=== PATIENT | male | born 1990 | race Caucasian/White ===

== ENCOUNTER → 2020-10-16 12:30 | Outpatient (BNVA) | payer OTHER, SELFPAY | PROVIDERS: Visit Provider Nurse Practitioner Family | DX: Z20.822 Contact with and (suspected) exposure to COVID-19 (principal) | CPT/HCPCS: 87635 ==

== ENCOUNTER 2021-06-16 03:28 | Emergency (ER) | payer SELFPAY ==
[2021-06-16 03:34] VITALS: BP 156/104; PULSE 75; RESP 18; TEMP 36.4; O2SAT 100; BMI 31.1
--- NOTE | 2021-06-16 04:47 | CTR_ITS ---
PROCEDURE INFORMATION: Exam: CT Head Without Contrast Exam date and time: 06/16/2021 4:47 AM Age: 31 years old Clinical indication: Pain; Headache TECHNIQUE: Imaging protocol: Computed tomography of the head without contrast. Radiation optimization: All CT scans at this facility use at least one of these dose optimization techniques: automated exposure control; mA and/or kV adjustment per patient size (includes targeted exams where dose is matched to clinical indication); or iterative reconstruction. COMPARISON: CT head wo con* [id number] 01/28/2015 7:08 AM RADIATION DOSE METRICS: Total DLP (mGy-cm): 889.07 FINDINGS: Brain: No acute intracranial hemorrhage or mass effect. No definite acute infarct by CT. Cerebral ventricles: Ventricle size is normal for age. Paranasal sinuses: Included paranasal sinuses are essentially clear. Mastoid air cells: No significant acute finding. Vasculature: As before, prominent draining vein in the right frontal region, presumably related to a venous angioma. No significant interval change in this appearance. Bones/joints: No definite acute skull fracture. CT/CT head wo con* [id number] IMPRESSION: 1. No acute intracranial hemorrhage or mass effect. 2. Other findings discussed above. Radiation Dose CTDIVOL = (mGy): DLP = 889.07 (mGy-cm)
[2021-06-16] MEDS: diphenhydrAMINE 50 mg/mL SDV 1mL 25 MG IVP (04:58)
[2021-06-16] MEDS: dexamethasone 4 mg/mL INJ 8 MG IVP (04:59)
[2021-06-16] MEDS: metoclopramide 5 mg/mL SDV 2 mL 10 MG IVP (04:59)
[2021-06-16] MEDS: ketorolac 30 mg/mL INJ 15 MG IVP (04:59)
--- NOTE | 2021-06-16 05:23 | ED_ITS ---
HPI - Headache General: Chief Complaint: Headache Stated Complaint: bad headache Time Seen by Provider: 06/16/21 03:53 History of Present Illness: HPI Narrative: 31-year-old male who states that he has had headaches essentially daily/nightly for the last 10 years. They are always on the right side of his head. He points to the temporoparietal region. He states that with his headaches, the right eye antonio, and gets puffy . He takes Excedrin Migraine, which helps sometimes, but not always. The headache was much worse tonight than usual, although maybe not the worst of his life. He denies any fever, vomiting, specific blurry vision, weakness, language problems or other symptoms. He states that he has never been checked out for these headaches MD elicited complaint: headache Onset (ago): hour(s) Onset description: gradually and while at rest Location: right, temporal and parietal Severity: moderate Quality & Timing: aching, throbbing and pressure Exacerbating factors: exertion and light Relieving factors: nothing Context: occurred at rest Associated symptoms: Reports nausea and photophobia; Deny chest pain, confusion, cough, diaphoresis, eye pain, eye redness, fever(s), neck stiffness, numbness, paresthesias, seizures, short of breath or vomiting Review of Systems Const: Denies: fever(s) or diaphoresis Card: Denies: chest pain GI: Reports: nausea; Denies: vomiting Neuro: Denies: confusion [facility] ED PFSH: Social History (Updated 10/16/20 @ 11:14 by Charly Smith LPN) Smoking and tobacco status: current every day smoker Alcohol intake: never Physical Exam Const: COMMON NORMALS: no acute distress, patient oriented x3 and alert GENERAL APPEARANCE: cooperative HENMT: COMMON NORMALS: normocephalic HEAD & SCALP: normocephalic Eye: COMMON NORMALS: Equal, round and reactive pupils present and EOMs intact bilaterally PUPIL: Yes Equal, round and reactive pupils present DIRECT OPHTHALMOSCOPY: Yes photophobia Chest: COMMONS NORMALS: normal inspection of the chest Resp: COMMON NORMALS: normal respiratory effort, No use of accessory muscles and clear to auscultation bilaterally AUSCULTATION: clear to auscultation bilaterally Cardio: COMMON NORMALS: regular rate and regular rhythm RATE: regular rate RHYTHM: regular rhythm GI: COMMON NORMALS: Normal to inspection, nondistended, normoactive bowel sounds present Neuro: COMMON NORMALS: patient oriented x3 SENSORIUM/ORIENTATION: Yes alert Course Vital Signs: Vital signs: Vital Signs Temperature 97.6 F 06/16/21 03:34 Pulse Rate 75 06/16/21 03:34 Respiratory Rate 18 06/16/21 03:34 Blood Pressure 156/104 06/16/21 03:34 Pulse Oximetry 100 06/16/21 03:34 MDM - Headache MDM Narrative: Medical decision making narrative: Migraine cocktail given. Awaiting CT result [[id number]] CT report reveals a large draining vein in the right frontal region, presumably of venous angioma. Usually these are incidental findings as radiology notes, but curious that his pain is always on the right. He will require further outpatient work-up for this. He has no PCP. Case management has been consulted to find the patient a PCP. He will likely need an MRV as an outpatient. Discharge Plan Discharge Patient Disposition: Home Clinical Impression: Headache Qualifiers: Headache type: unspecified Headache chronicity pattern: acute headache Intractability: not intractable Qualified Code(s): R51.9 - Headache, unspecified Condition: Stable Prescriptions: New Imitrex 100 mg tablet See Rx Instructions .ROUTE .COMPLEX Qty: 10 RF: 0 Discharge Orders: Discharge ED (Routine); Ordered 06/16/21 Ordered By: Lito Lou Discharge Diet: Advance as tolerated Discharge Activity: Increase activity as tolerated Patient Instructions: Migraine Headache (ED) Activity Restrictions/Additional Instructions: Return for worsening headache despite treatment, language problems, weakness, vision problems, other concerning symptoms. A case management referral has been placed for a primary care physician appointment for you. You should get a call from them this week to clarify an appointment time Coding Level of Care Code ED Electronics Technician Apprentice for [employer] Fwd Exam Detailed
--- NOTE | 2021-06-18 13:31 | DCPLANNER ---
outcomes manager had message to speak with patient about getting a primary care physician. outcomes manager called phone number [phone], hospice case manager unable to speak with patient at this time. outcomes manager did leave a voicemail for patient to return manager of case management phone call.
== END 2021-06-16 07:23 | disposition home or self-care (01) ==
PROVIDERS: Emergency Provider Emergency Medicine
DX: R51.9 Headache, unspecified (principal); F17.210 Nicotine dependence, cigarettes, uncomplicated
CPT/HCPCS: 70450; 96374; 96375; 99283; J1100; J1200; J1885; J2765

== ENCOUNTER 2021-07-29 21:46 | Emergency (ER) | payer SELFPAY ==
[2021-07-29 21:59] VITALS: BP 159/93; PULSE 87; RESP 18; TEMP 37.1; O2SAT 98; BMI 31.1
--- NOTE | 2021-07-29 22:09 | ED_ITS ---
HPI - Dental/Oral General: Chief complaint: Dental/Oral Stated complaint: Absessed Teeth Time Seen by Provider: 07/29/21 22:05 History of Present Illness: HPI Narrative: Patient is a 31-year-old male comes to the ED with dental pain. Symptoms started a couple days ago. His dental pain is located around tooth #30 and 29 and back right lower jaw. Denies any injury or trauma to cause dental pain. He has a dentist he is cold and has an appoint with them scheduled for 07 September, but might be able to get in earlier if there is any cancellations. Denies any fever, chills, trouble breathing or any tongue or lip swelling. Associated symptoms: Denies fever(s) or odynophagia Review of Systems Const: Denies: fever(s), chills or fatigue Eyes: Denies: change in vision or eye discomfort ENMT: Reports: dental pain; Denies: throat pain, odynophagia, nasal discharge or nasal congestion Card: Denies: chest pain, palpitations, edema, swelling of feet/ankles, dyspnea on exertion or orthopnea Resp: Denies: dyspnea, productive cough or non-productive cough GI: Denies: abdominal pain, nausea, vomiting, diarrhea, constipation or hematochezia : Denies: flank pain, difficulty urinating, dysuria or hematuria Musc: Denies: neck pain, back pain or extremity swelling Skin/Breast: Denies: rash or new lesions Neuro: Denies: headache(s), numbness in extremities or weakness in extremities PFSH ED PFSH: Social History Smoking and tobacco status: current every day smoker Alcohol intake: never Physical Exam Const: COMMON NORMALS: no acute distress, patient oriented x3, healthy appearing and alert GENERAL APPEARANCE: cooperative and comfortable HENMT: COMMON NORMALS: normocephalic HEAD & SCALP: normocephalic MOUTH: Normal oral and palatal mucosa present TEETH & GINGIVA: Yes abnormal tooth and associated gingiva lower right first molar tender, with associated gingival edema and other (Extensive dental decay) and Yes caries (Tooth #30 and 29) THROAT: posterior oropharynx normal and uvula midline Neck/C-Spine: COMMON NORMALS: supple GENERAL: Yes normal visual inspection Resp: COMMON NORMALS: normal respiratory effort, No retractions, No use of accessory muscles and clear to auscultation bilaterally AUSCULTATION: clear to auscultation bilaterally Cardio: COMMON NORMALS: regular rate, regular rhythm, S1 normal heart sound present, S2 normal heart sound present, No gallops present (Cardio), No clicks present (Cardio), No murmurs present (Cardio) and Peripheral pulses 2+ throughout RATE: regular rate RHYTHM: regular rhythm HEART SOUNDS: S1 normal heart sound present and S2 normal heart sound present PERIPHERAL PULSES: Peripheral pulses 2+ throughout GI: COMMON NORMALS: Normal to inspection, nondistended, normoactive bowel sounds present, Soft to palpation, non-tender and no masses PALPATION: Yes Soft to palpation : COMMON NORMALS: Yes no CVA tenderness BLADDER/KIDNEY EXAM: Yes no CVA tenderness Back/Pelvis: COMMON NORMALS: no CVA tenderness Extremity: COMMON NORMALS: normal to inspection Neuro: COMMON NORMALS: patient oriented x3 and moves all extremities SENSORIUM/ORIENTATION: Yes alert Skin: GENERAL SKIN EXAM: dry skin Course Vital Signs: Vital signs: Vital Signs Temperature 98.8 F 07/29/21 21:59 Pulse Rate 87 07/29/21 21:59 Respiratory Rate 18 07/29/21 21:59 Blood Pressure 159/93 07/29/21 21:59 Pulse Oximetry 98 07/29/21 21:59 MDM - Dental/Oral MDM Narrative: Medical decision making narrative: Patient is a 31-year-old male comes to the ED with dental pain. He has extensive dental caries on tooth #30 and 29 of right lower mandible. No trouble breathing, lip or tongue swelling noted. Vitals are stable. Patient has an appointment set up with the dentist in a couple weeks but is going to try to get in earlier if possible. He was given a dose of clindamycin and hydrocodone while here in the ED. He was discharged home with Celebrex and clindamycin prescriptions. Return ED precautions given. Patient understood agree with plan. Discharge Plan Discharge Patient Disposition: Home Clinical Impression: Dental infection Condition: Stable Prescriptions: New clindamycin HCl 150 mg capsule 300 mg PO QID 7 Days Qty: 56 RF: 0 Celebrex 100 mg capsule 100 mg PO BID PRN (Reason: pain) Qty: 20 RF: 0 No Action Imitrex 100 mg tablet See Rx Instructions .ROUTE .COMPLEX Qty: 10 RF: 0 Discharge Orders: Discharge ED (Routine); Ordered 07/29/21 Ordered By: Taiwo Colón Discharge Diet: Regular Discharge Activity: Resume usual activity Patient Instructions: Dental Caries (Cavities), Toothache (ED) Activity Restrictions/Additional Instructions: Follow-up with dentist at your next scheduled appointment for further evaluation and management of dental pain. Take medications as prescribed. Return to the ER or your medical provider if condition worsens. Please read and understand discharge instructions. Thank you for choosing [facility] for your healthcare needs today. Please realize this is an emergency room and that we are providing you with a medical screening exam and this may not be complete and all inclusive of all the testing and or work up that you may need to determine your ailment or severity of your illness. It is very important that you follow up as instructed or that you return to the Emergency Department should you have concerns or if your condition changes or worsens in any way. Coding Level of Care Code ED Stripper Printed Circuit Boards for Riaz Fwd Exam Comprehensive
[2021-07-29] MEDS: clindamycin 150 mg Capsule 300 MG PO (22:54)
[2021-07-29] MEDS: HYDROcodone-acetaminophen 5-325 mg Tablet 1 TAB PO (22:54)
[2021-07-29 22:56] VITALS: BP 157/104; PULSE 85; RESP 18; O2SAT 98
== END 2021-07-29 22:59 | disposition home or self-care (01) ==
PROVIDERS: Emergency Provider Physician Assistant
DX: K04.7 Periapical abscess without sinus (principal); F17.210 Nicotine dependence, cigarettes, uncomplicated
CPT/HCPCS: 99283

== ENCOUNTER 2021-10-19 14:26 | Emergency (ER) | payer SELFPAY ==
[2021-10-19 14:40] VITALS: BP 159/100; PULSE 81; RESP 16; TEMP 36.7; O2SAT 98
--- NOTE | 2021-10-19 15:15 | W.ED.HA ---
HPI - Headache General: Chief Complaint: Headache Stated Complaint: Migraine for several days and wont go away Time Seen by Provider: 10/19/21 14:49 Source: patient and family Mode of arrival: ambulatory Limitations: no limitations History of Present Illness: Patient is a 31-year-old male who presents to the ED today with a complaint of chronic headaches. Patient states he has experienced chronic headaches daily for years . He states headaches are usually manageable during the day but seem to worsen at night. He states headaches are always focused to his right temporal parietal region. He states sometimes he will get right periorbital swelling and occasionally right-sided epistaxis. Patient has been evaluated for the headaches previously and in ED setting but has never had any kind of outpatient/specialty evaluation. He states his CT scan on his last visit showed a venous angioma he was recommended to have further imaging as an outpatient. Patient does not have any insurance/is self-pay so has not followed up with this. Significant other states he has been eating extreme amounts of [id number] migraine medication and attempts to help alleviate his discomfort but none of it helps. He states he has been Imitrex without relief of symptoms as well. Headache does not seem to be affected by position or exertion. MD elicited complaint: headache Onset (ago): year(s) Location: right, temporal and parietal Severity: severe Quality & Timing: throbbing Exacerbating factors: other (seems to worsen at night) Relieving factors: nothing Associated symptoms: Deny chest pain, confusion, fever(s), malaise, nausea, rash or vomiting Treatments prior to arrival: acetaminophen, ibuprofen, prescription analgesic and migraine medication Review of Systems Const: Denies: fever(s), chills, body aches, fatigue or malaise Eyes: Reports: other (occassional R eye periorbital swelling); Denies: change in vision, blurry vision, blind spots, photophobia, eye discomfort, eye discharge, eye redness, floaters or seeing flashes ENMT: Reports: epistaxis (occasionally with headaches); Denies: throat pain, odynophagia, nasal discharge or nasal congestion Card: Denies: chest pain Resp: Denies: dyspnea GI: Denies: abdominal pain, nausea or vomiting Musc: Denies: neck pain, back pain, extremity pain or joint pain Skin/Breast: Denies: rash Neuro: Reports: headache(s); Denies: numbness in extremities, weakness in extremities, sensory changes, difficulty walking, frequent falls, dizziness, vertigo, confusion, behavioral changes, Slurred speech present, difficulty communicating thoughts or seizure-like activity PFSH ED PFSH: Social History Smoking and tobacco status: current every day smoker Alcohol intake: never Physical Exam Const: COMMON NORMALS: no acute distress, average body habitus, patient oriented x3, no limitations, healthy appearing, alert and well nourished GENERAL APPEARANCE: cooperative ORIENTATION/CONSCIOUSNESS: Yes awake, Yes oriented to person, Yes oriented to place and Yes oriented to time HENMT: COMMON NORMALS: normocephalic, atraumatic, hearing grossly normal bilaterally, external ears normal, EAC's normal, TM's normal bilaterally, Normal external nose present and oropharynx normal HEAD & SCALP: normal to inspection, normocephalic and atraumatic FACE & SINUS: normal facial exam NOSE: Normal external nose present EXTERNAL EAR: Yes external ears normal EXTERNAL AUDITORY CANAL: EAC's normal TYMPANIC MEMBRANE: TM's normal bilaterally MOUTH: Normal oral and palatal mucosa present, lip normal and tongue normal THROAT: posterior oropharynx normal, tonsils normal and uvula midline Eye: COMMON NORMALS: Equal, round and reactive pupils present and EOMs intact bilaterally GENERAL EYE: appearance normal, both eyes and all related structures PUPIL: Yes Equal, round and reactive pupils present Neck/C-Spine: COMMON NORMALS: full ROM, no lymphadenopathy and no meningeal signs Resp: COMMON NORMALS: normal respiratory effort Cardio: COMMON NORMALS: regular rate and regular rhythm RATE: regular rate RHYTHM: regular rhythm Extremity: COMMON NORMALS: normal to inspection Neuro: EVERT COMA SCALE: document GCS findings Evert coma scale eye opening: Spontaneous [place] coma scale verbal response: Orientated [place] coma scale motor response: Obey commands [place] coma scale total score: 15 COMMON NORMALS: patient oriented x3, CN's II-XII intact bilaterally, moves all extremities, no focal motor deficits, no sensory deficits noted and gait normal SENSORIUM/ORIENTATION: Yes alert, Yes oriented to person, Yes oriented to place and Yes oriented to time MENINGEAL SIGNS: Yes no meningeal signs Skin: COMMON NORMALS: no rashes or lesions noted GENERAL SKIN EXAM: no rashes or lesions noted Course Vital Signs: Vital signs: Vital Signs Temperature 98.1 F 10/19/21 14:40 Pulse Rate 68 10/19/21 16:14 Respiratory Rate 16 10/19/21 16:14 Blood Pressure 137/86 10/19/21 16:14 Pulse Oximetry 98 10/19/21 16:14 MDM - Headache Medical Decision Making Patient is a 31-year-old male here for complaints of chronic daily headaches for years . Looks like he had a CT scan back in 2014 which showed the venous angioma. His CT scan in June 2021 also saw this and the appearance had not changed much. These are usually incidental however when symptomatic developmental venous anomalies/DVAs can present with headaches. I spoke with ad radiologist who stated the best imaging to order for further evaluation would be a MRA. I explained to patient I would not be able to complete this from an ED standpoint today as his symptoms have been present for years and it is considered non-emergent at this time. I did place information with CM to get him set up with PCP so they can order and refer to neurology/neurosurgery if indicated. They also were given financial retirement plan specialist paperwork to help cover costs. Patient stated he has noticed his BP has been elevated and wonders if this could have anything to do with his headaches-certainly possible. I think it is reasonable to place patient on propranolol which will provide treatment for his headaches but also indicated for chronic migraine headaches. PCP can titrate this upward to desired effect. Return to ED precautions given. I did elect to do CBC/CMP given the history of him taking extreme amounts of [id number] medications for treatment of HAs. His LFTs/kidney functions are normal. Return to ED precautions verbally given to patient and significant other. Lab Data : 10/19/21 15:20 10/19/21 15:20 Laboratory Results WBC 7.9 10^3/uL (4.0-10.0) 10/19/21 15:20 RBC 5.39 10^6/uL (4.1-5.3) H 10/19/21 15:20 Hgb 15.6 g/dL (11.7-16.6) 10/19/21 15:20 Hct 46.2 % (42.0-52.0) 10/19/21 15:20 MCV 85.7 fl (80-94) 10/19/21 15:20 MCH 28.9 pg (28.0-34.0) 10/19/21 15:20 MCHC 33.8 g/dL (30.0-36.0) 10/19/21 15:20 RDW 12.7 % (12.1-15.1) 10/19/21 15:20 Plt Count 187 10^3/cmm (130-400) 10/19/21 15:20 MPV 11.1 fL (7.4-10.4) H 10/19/21 15:20 Neut % (Auto) 57.8 % 10/19/21 15:20 Lymph % (Auto) 32.6 % 10/19/21 15:20 Nance % (Auto) 6.7 % 10/19/21 15:20 Eos % (Auto) 1.9 % 10/19/21 15:20 Baso % (Auto) 0.6 % 10/19/21 15:20 Neut # (Auto) 4.59 10^3/uL (1.8-7.7) 10/19/21 15:20 Lymph # (Auto) 2.6 10^3/uL (0.8-4.8) 10/19/21 15:20 Nance # (Auto) 0.5 10^3/uL (0.2-0.9) 10/19/21 15:20 Eos # (Auto) 0.2 10^3/uL (0.0-0.8) 10/19/21 15:20 Baso # (Auto) 0.1 10^3/uL (0.0-0.1) 10/19/21 15:20 Nucleated RBC % (auto) 0 % 10/19/21 15:20 Nucleated RBCs # 0.0 /100WBC 10/19/21 15:20 Sodium 141 mmol/L (136-145) 10/19/21 15:20 Potassium 4.1 mmol/L (3.5-5.1) 10/19/21 15:20 Chloride 107 mmol/L (98-107) 10/19/21 15:20 Carbon Dioxide 23 mmol/L (22-29) 10/19/21 15:20 Anion Gap 15.1 (5-19) 10/19/21 15:20 BUN 9 mg/dL (6-20) 10/19/21 15:20 Creatinine 1.1 mg/dL (0.7-1.2) 10/19/21 15:20 GFR Calculation 77.6 mL/min (90-130) L 10/19/21 15:20 Glucose 86 mg/dL (65-115) 10/19/21 15:20 Calculated Osmolality 290 mOsm/kg (285-295) 10/19/21 15:20 Calcium 8.5 mg/dL (8.5-10.5) 10/19/21 15:20 Total Bilirubin 0.2 mg/dL (0.15-1.2) 10/19/21 15:20 AST 15 U/L (0-40) 10/19/21 15:20 ALT 21 U/L (0-41) 10/19/21 15:20 Alkaline Phosphatase 98 IU/L (40-130) 10/19/21 15:20 Total Protein 7.1 g/dL (6.6-8.7) 10/19/21 15:20 Albumin 4.6 g/dL (3.5-5.2) 10/19/21 15:20 Globulin 2.5 g/dL (1.3-4.6) 10/19/21 15:20 Discharge Plan Discharge Patient Disposition: Home Clinical Impression: Chronic headaches Qualifiers: Headache type: unspecified Intractability: intractable Qualified Code(s): R51.9 - Headache, unspecified Hypertension Qualifiers: Hypertension type: unspecified Qualified Code(s): I10 - Essential (primary) hypertension Condition: Stable Prescriptions: New propranolol 20 mg tablet 20 mg PO Q6H Qty: 30 0RF No Action Imitrex 100 mg tablet See Rx Instructions .ROUTE .COMPLEX Qty: 10 0RF Rx Instructions: take 1 tab at onset of headache; if no relief, may repeat 1 tab after at least 2 hrs; max = 2 tabs/24 hrs Celebrex 100 mg capsule 100 mg PO BID PRN (Reason: pain) Qty: 20 0RF Discharge Orders: Discharge ED (Routine); Ordered 10/19/21 Ordered By: Jenise Cabrera Activity Restrictions/Additional Instructions: As we discussed case management should contact you early this week to set you up with a primary care provider. They can order any additional imaging such as the MRA for further evaluation of the venous angioma. They can also follow-up with you on your blood pressure and initiation of medication for hypertension/chronic headaches. The medication provided to you today is a blood pressure medication but has shown to improve chronic headaches as well. This medication can be titrated up if the lower dosing does not seem to be working-primary care can do this. Monitor for symptoms of too low blood pressure such as lightheadedness, dizziness, passing out episodes. Do not take medication of blood pressure is below 110/70. Coding Level of Care Code ED Glucose And Syrup Weigher for Riaz Cobos
[2021-10-19 15:30] LABS: Basophils # 0.1 10^3/uL (0.0-0.1); Basophils % 0.6 %; Eosinophils # 0.2 10^3/uL (0.0-0.8); Eosinophils % 1.9 %; Hematocrit 46.2 % (42.0-52.0); Hemoglobin 15.6 g/dL (11.7-16.6); Lymphocytes # 2.6 10^3/uL (0.8-4.8); Lymphocytes % 32.6 %; Mean Corpuscular HGB Conc 33.8 g/dL (30.0-36.0); Mean Corpuscular Hemoglobin 28.9 pg (28.0-34.0); Mean Corpuscular Volume 85.7 fl (80-94); Mean Platelet Volume 11.1 fL (7.4-10.4); Monocytes # 0.5 10^3/uL (0.2-0.9); Monocytes % 6.7 %; Neutrophils # 4.59 10^3/uL (1.8-7.7); Neutrophils % 57.8 %; Nucleated Red Blood Cells % 0 %; Platelet Count 187 10^3/cmm (130-400); Red Blood Count 5.39 10^6/uL (4.1-5.3); Red Cell Distribution Width 12.7 % (12.1-15.1); White Blood Count 7.9 10^3/uL (4.0-10.0)
[2021-10-19 15:58] LABS: Alanine Aminotransferase 21 U/L (0-41); Albumin Level 4.6 g/dL (3.5-5.2); Alkaline Phosphatase 98 IU/L (40-130); Anion Gap 15.1 (5-19); Aspartate Amino Transferase 15 U/L (0-40); Blood Urea Nitrogen 9 mg/dL (6-20); Calcium 8.5 mg/dL (8.5-10.5); Carbon Dioxide 23 mmol/L (22-29); Chloride 107 mmol/L (98-107); Globulin 2.5 g/dL (1.3-4.6); Glomerular Filtration Rate 77.6 mL/min (90-130); Glucose 86 mg/dL (65-115); Osmolality Calculated 290 mOsm/kg (285-295); Potassium 4.1 mmol/L (3.5-5.1); Sodium 141 mmol/L (136-145); Total Bilirubin 0.2 mg/dL (0.15-1.2); Total Protein 7.1 g/dL (6.6-8.7)
[2021-10-19 16:14] VITALS: BP 137/86; PULSE 68; RESP 16; O2SAT 98
--- NOTE | 2021-11-02 09:54 | DCPLANNER ---
late entry - patient case manager had message to speak with patient about primary care, patient case manager unable to reach patient.
== END 2021-10-19 16:24 | disposition home or self-care (01) ==
PROVIDERS: Emergency Provider Physician Assistant
DX: R51.9 Headache, unspecified (principal); I10 Essential (primary) hypertension; F17.210 Nicotine dependence, cigarettes, uncomplicated
CPT/HCPCS: 80053; 85025; 99283

== ENCOUNTER 2021-10-31 15:44 | Emergency (ER) | payer SELFPAY ==
[2021-10-31 16:02] VITALS: BP 150/91; PULSE 76; RESP 18; TEMP 36.9; O2SAT 96; BMI 31.1
--- NOTE | 2021-10-31 16:18 | ED_ITS ---
HPI - Headache General: Chief Complaint: Headache Stated Complaint: Headaches, high blood pressure Time Seen by Provider: 10/31/21 16:14 History of Present Illness: Patient is a 31-year-old male comes to the ED with chronic headaches. Patient has been having these headaches on and off for many years. Headache started yesterday. Patient is currently taking propranolol 20 mg every 6 hours and that has helped with his headaches but he ran out of his med yesterday. Headache he is having currently is just like his previous headaches. It is located on the right temporal region of his head that is a constant aching and throbbing pressure. He rates his headache currently an 8 out of 10. ?He denies any fever, vomiting, specific blurry vision, paresthesia or weakness. Associated symptoms: Deny chest pain, fever(s), nausea, rash or vomiting Review of Systems Const: Denies: fever(s), chills or fatigue Eyes: Denies: change in vision or eye discomfort ENMT: Denies: throat pain, odynophagia, nasal discharge or nasal congestion Card: Denies: chest pain, palpitations, edema, swelling of feet/ankles, dyspnea on exertion or orthopnea Resp: Denies: dyspnea, productive cough or non-productive cough GI: Denies: abdominal pain, nausea, vomiting, diarrhea, constipation or hematochezia : Denies: flank pain, difficulty urinating, dysuria or hematuria Musc: Denies: neck pain, back pain or extremity swelling Skin/Breast: Denies: rash or new lesions Neuro: Reports: headache(s); Denies: numbness in extremities or weakness in extremities PFS ED PFSH: Medical History No pertinent family history Surgical History No pertinent past surgical history Social History Smoking and tobacco status: current every day smoker Alcohol intake: never Physical Exam Const: COMMON NORMALS: no acute distress, patient oriented x3, healthy appearing and alert GENERAL APPEARANCE: cooperative and comfortable HENMT: COMMON NORMALS: normocephalic HEAD & SCALP: normocephalic MOUTH: Normal oral and palatal mucosa present THROAT: posterior oropharynx normal and uvula midline Neck/C-Spine: COMMON NORMALS: supple GENERAL: Yes normal visual inspection Resp: COMMON NORMALS: normal respiratory effort, No retractions, No use of accessory muscles and clear to auscultation bilaterally AUSCULTATION: clear to auscultation bilaterally Cardio: COMMON NORMALS: regular rate, regular rhythm, S1 normal heart sound present, S2 normal heart sound present, No gallops present (Cardio), No clicks present (Cardio), No murmurs present (Cardio) and Peripheral pulses 2+ throughout RATE: regular rate RHYTHM: regular rhythm HEART SOUNDS: S1 normal heart sound present and S2 normal heart sound present PERIPHERAL PULSES: Peripheral pulses 2+ throughout GI: COMMON NORMALS: Normal to inspection, nondistended, normoactive bowel sounds present, Soft to palpation, non-tender and no masses PALPATION: Yes Soft to palpation : COMMON NORMALS: Yes no CVA tenderness BLADDER/KIDNEY EXAM: Yes no CVA tenderness Back/Pelvis: COMMON NORMALS: no CVA tenderness Extremity: COMMON NORMALS: normal to inspection Neuro: COMMON NORMALS: patient oriented x3, CN's II-XII intact bilaterally, moves all extremities, no focal motor deficits and no sensory deficits noted SENSORIUM/ORIENTATION: Yes alert SENSORY EXAM: Yes extremities (intact) MOTOR EXAM: 5/5 motor strength present throughout Skin: GENERAL SKIN EXAM: dry skin Course Vital Signs: Vital signs: Vital Signs Temperature 98.4 F 10/31/21 16:02 Pulse Rate 76 10/31/21 16:02 Respiratory Rate 18 10/31/21 16:02 Blood Pressure 150/91 10/31/21 16:02 Pulse Oximetry 96 10/31/21 16:02 [facility] - Headache Medical Decision Making Patient is a 31-year-old male comes to the ED with chronic headaches. He currently takes propranolol to help in his headaches and ran out of his medication. He states the last visit he had here they told him he was going to get a call from case management to set him up with a primary care physician to get established with and he has not received a call yet. His current headache today is like his past headaches. Vitals are stable. Exam is benign. Patient was given migraine cocktail and his symptoms improved. I placed an order with case management for patient be referred to a primary care physician to get established with and also for referral to neurology. Patient was discharged home and I sent him with a refill prescription for propranolol. Return to ED precautions given. Patient understood and agreed with plan. Discharge Plan Discharge Patient Disposition: Home Clinical Impression: Headache Qualifiers: Headache type: unspecified Headache chronicity pattern: chronic headache Intractability: not intractable Qualified Code(s): R51.9 - Headache, unspecified Condition: Stable Prescriptions: New propranolol 20 mg tablet 20 mg PO Q6H Qty: 30 0RF No Action propranolol 20 mg tablet 20 mg PO Q6H Qty: 30 0RF Imitrex 100 mg tablet See Rx Instructions .ROUTE .COMPLEX Qty: 10 0RF Rx Instructions: take 1 tab at onset of headache; if no relief, may repeat 1 tab after at least 2 hrs; max = 2 tabs/24 hrs Celebrex 100 mg capsule 100 mg PO BID PRN (Reason: pain) Qty: 20 0RF Discharge Orders: Discharge ED (Routine); Ordered 10/31/21 Ordered By: Taiwo Colón Discharge Diet: Regular Discharge Activity: Increase activity as tolerated Patient Instructions: Headache Activity Restrictions/Additional Instructions: Follow-up with medical provider as directed. I placed a new order to case management for them to set you up with neuro and a primary care physician, so you should be getting a call from them early next week. take medications as prescribed. Return to the ER or your medical provider if condition worsens. Please read and understand discharge instructions. Thank you for choosing [facility] for your healthcare needs today. Please realize this is an emergency room and that we are providing you with a medical screening exam and this may not be complete and all inclusive of all the testing and or work up that you may need to determine your ailment or severity of your illness. It is very important that you follow up as instructed or that you return to the Emergency Department should you have concerns or if your condition changes or worsens in any way. Coding Level of Care Code ED Sausage Smoker for Riaz Cobos Exam Comprehensive
--- NOTE | 2021-10-31 16:34 | DCPLANNER ---
Addendum entered by Shabnam Oro 12/31/21 21:24: Patient had a follow up appointment scheduled for 12.11.[address] Mullen - patient did not attend appointment. Addendum entered by Shabnam Oro 11/12/21 07:50: Patient has a follow up appointmetn scheduled for Saturday, December 11, 2021 at 10:[address] Mullen. Clinic will call patient with appointment information. Original Note: manager balance had message to schedule a follow up appointment for patient with Dr. Mullen. manager balance emailed patients information to the neurology clinic. Patients information will be printed and reviewed. Clinic will call patient with appointment information.
[2021-10-31] MEDS: sodium chloride 0.9% 500 ML 999 ML IV (16:57)
[2021-10-31] MEDS: dexamethasone 10 mg/mL INJ IM (17:00)
[2021-10-31] MEDS: metoclopramide 5 mg/mL SDV 2 mL 10 MG IVP (17:01)
[2021-10-31] MEDS: diphenhydrAMINE 50 mg/mL SDV 1mL 25 MG IVP (17:01)
[2021-10-31] MEDS: ketorolac 30 mg/mL INJ IVP (17:01)
== END 2021-10-31 17:20 | disposition home or self-care (01) ==
PROVIDERS: Emergency Provider Physician Assistant
DX: R51.9 Headache, unspecified (principal); F17.210 Nicotine dependence, cigarettes, uncomplicated
CPT/HCPCS: 96361; 96374; 96375; 99284; J1100; J1200; J1885; J2765; J7040

== ENCOUNTER 2022-05-19 20:06 | Emergency (ER) | payer OTHER, SELFPAY ==
[2022-05-19 20:10] VITALS: BP 145/80; PULSE 72; RESP 18; TEMP 36.9; O2SAT 98; BMI 31.6
--- NOTE | 2022-05-19 20:39 | XRR_ITS ---
PROCEDURE INFORMATION: Exam: XR Left Hand Exam date and time: 05/19/2022 8:54 PM Age: 32 years old Clinical indication: Pain; Hand; Left; Additional info: Injury TECHNIQUE: Imaging protocol: Radiologic exam of the Left hand. Views: 3 or more views. COMPARISON: No relevant prior studies available. FINDINGS: Bones/joints: Normal. Soft tissues: 1 mm radiopacity in the soft tissues of anterior distal forearm can represent calcification or foreign body. XR/XR hand LT min 3V* [id number] IMPRESSION: No acute findings.
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
[2022-05-19] MEDS: tetanus-dipt-pertussis 0.5 mL SDV IM (21:33)
[2022-05-19] MEDS: lidocaine 1% INJ 20 mL INJECTION (21:37)
--- NOTE | 2022-05-19 22:21 | PC.NURSE ---
wound was cleansed and dressed with 4x4 dressing and roller bandage. SMC intact.
[2022-05-19 22:22] VITALS: PULSE 79; RESP 16; O2SAT 97
== END 2022-05-19 22:00 | disposition home or self-care (01) ==
PROVIDERS: Emergency Provider Emergency Medicine
DX: S61.412A Laceration without foreign body of left hand, initial encounter (principal); F17.210 Nicotine dependence, cigarettes, uncomplicated; W31.89XA Contact with other specified machinery, initial encounter; Z23 Encounter for immunization
CPT/HCPCS: 12001; 73130; 90471; 90715; 99284

== ENCOUNTER 2024-04-05 12:09 | Emergency (ER) | payer BC, SELFPAY ==
[2024-04-05 12:16] VITALS: BP 160/93; PULSE 86; RESP 20; TEMP 36.4; O2SAT 1
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
[2024-04-05 12:37] VITALS: BP 145/88; PULSE 86; O2SAT 96
[2024-04-05] MEDS: ondansetron 2 mg/ML SDV 2 mL 4 MG IVP (12:57)
[2024-04-05] MEDS: ketorolac 30 mg/mL INJ IVP (12:58)
[2024-04-05] MEDS: sodium chloride 0.9% 1,000 ML 999 ML IV (13:00)
[2024-04-05 13:01] VITALS: BP 146/89; PULSE 73; O2SAT 96
[2024-04-05 13:01] LABS: Basophils % 0.4 %; Eosinophils # 0.1 10^3/uL (0.0-0.8); Eosinophils % 1.1 %; Hematocrit 47.2 % (37-53); Lymphocytes # 2.6 10^3/uL (0.8-4.8); Lymphocytes % 27.4 %; Mean Corpuscular HGB Conc 33.7 g/dL (30-55); Mean Corpuscular Hemoglobin 28.5 pg (27-33); Mean Corpuscular Volume 84.7 fl (82-101); Mean Platelet Volume 10.6 fL (7.4-10.4); Monocytes # 0.4 10^3/uL (0.2-0.9); Monocytes % 4.6 %; Neutrophils # 6.32 10^3/uL (1.8-7.7); Nucleated Red Blood Cells % 0 %; Platelet Count 200 10^3/cmm (157-399); Red Blood Count 5.57 10^6/uL (3.85-5.65); Red Cell Distribution Width 12.9 % (12.1-15.1); White Blood Count 9.59 10^3/uL (3.29-11.43)
[2024-04-05 13:20] LABS: Alanine Aminotransferase 23 U/L (0-41); Albumin Level 4.6 g/dL (3.5-5.2); Alkaline Phosphatase 97 U/L (40-130); Anion Gap 16.9 (5-19); Aspartate Amino Transferase 15 U/L (0-40); Blood Urea Nitrogen 12 mg/dL (6-20); Calcium 9.4 mg/dL (8.5-10.5); Carbon Dioxide 24 mmol/L (22-29); Chloride 106 mmol/L (98-107); Creatine Phosphokinase 93 U/L (39-308); Creatinine Clr Calc Pharmacy 132.8863; Glucose 98 mg/dL (65-115); Osmolality Calculated 296 mOsm/kg (285-295); Potassium 3.9 mmol/L (3.5-5.1); Sodium 143 mmol/L (136-145); Total Bilirubin 0.4 mg/dL (0.15-1.2); Total Protein 7.6 g/dL (6.6-8.7)
[2024-04-05 14:43] VITALS: BP 142/76; PULSE 65; RESP 16; O2SAT 97
== END 2024-04-05 14:45 | disposition home or self-care (01) ==
PROVIDERS: Emergency Medicine; Emergency Provider Physician Assistant
DX: T67.5XXA Heat exhaustion, unspecified, initial encounter (principal); X30.XXXA Exposure to excessive natural heat, initial encounter; Z72.0 Tobacco use
CPT/HCPCS: 80053; 82550; 85025; 96361; 96374; 96375; 99284; J1885; J2405; J7030

== ENCOUNTER 2024-08-26 20:01 | Emergency (ER) | payer BC, SELFPAY ==
--- NOTE | 2024-08-26 20:03 | XRR_ITS ---
PROCEDURE INFORMATION: Exam: XR Chest Exam date and time: 08/26/2024 8:37 PM Age: 34 years old Clinical indication: Cough and shortness of breath; Additional info: SOB, cough TECHNIQUE: Imaging protocol: Radiologic exam of the chest. Views: 1 view. COMPARISON: CR XR thoracic spine 3V* [id number] 01/21/2018 8:43 PM FINDINGS: Lungs: Unremarkable. No consolidation. Pleural spaces: Unremarkable. No pleural effusion. No pneumothorax. Heart/Mediastinum: Unremarkable. No cardiomegaly. Bones/joints: Unremarkable. XR/XR chest 1V portable [id number] IMPRESSION: No acute findings.
[2024-08-26 20:05] VITALS: BP 164/94; PULSE 95; RESP 17; TEMP 36.9; O2SAT 97; BMI 32.0
--- NOTE | 2024-08-26 21:05 | W.ED.URI ---
HPI - URI/Sore Throat General: Chief Complaint: Upper Respiratory Infection Stated Complaint: SOB coughing Time Seen by Provider: 08/26/24 20:15 Source: patient Mode of arrival: ambulatory Limitations: no limitations History of Present Illness: Patient is a 34-year-old male who presents the emergency department complaining of a week of shortness of breath and cough that has been worsening. Denies history of asthma or allergies, states initially his cough was dry but now is productive of sputum. States that he has been coughing so much that his chest is starting to hurt. States that he intermittently has ran fevers, has only taken [id number] TheraFlu that did not seem to help at all. Denies any known sick contacts, however his daughter has also been sick. Denies history of sinus infections or pneumonia. MD elicited complaint: cough Onset (ago): week(s) (1) Consistency: constant Severity: moderate Description of mucous: clear Able to tolerate fluids by mouth: Yes Associated symptoms: Reports chest pain and fever(s); Deny abdominal pain, chills, diarrhea, ear or mastoid pain, headache(s), nausea or vomiting Treatments prior to arrival: cold medicine Related Data Previous Rx's Medication Instructions Recorded sumatriptan succinate 100 mg See Rx Instructions PO .COMPLEX 06/16/21 tablet (Imitrex) #10 tabs celecoxib 100 mg capsule (Celebrex) 100 mg PO BID PRN pain #20 caps 07/29/21 propranolol 20 mg tablet 20 mg PO Q6H #30 tabs 10/19/21 propranolol 20 mg tablet 20 mg PO Q6H #30 tabs 10/31/21 azithromycin 500 mg tablet 500 mg PO DAILY 5 days #5 tabs 08/26/24 benzonatate 200 mg capsule 200 mg PO BID PRN cough #20 caps 08/26/24 prednisone 20 mg tablet 60 mg (3 x 20 mg) PO ONCE 5 days 08/26/24 #15 tabs Allergies Allergy/AdvReac Type Severity Reaction Status Date / Time No Known Allergies Allergy Verified 08/26/24 20:17 Review of Systems General: Reports: 10 or more systems reviewed and unremarkable except in HPI and below Const: Reports: fever(s); Denies: chills or fatigue Eyes: Denies: change in vision ENMT: Denies: throat pain, ear or mastoid pain or nasal discharge Card: Reports: chest pain; Denies: palpitations, swelling of feet/ankles or lightheadedness Resp: Reports: dyspnea, productive cough and wheezing GI: Denies: abdominal pain, nausea, vomiting, diarrhea or constipation : Denies: flank pain, difficulty urinating, dysuria or urinary frequency Musc: Denies: neck pain, back pain or joint pain Skin/Breast: Denies: rash Neuro: Denies: headache(s), numbness in extremities or weakness in extremities PFSH ED PFSH: Medical History No pertinent family history Surgical History No pertinent past surgical history Social History Smoking and tobacco/nicotine status: current every day tobacco/nicotine user Alcohol intake: never Physical Exam Const: COMMON NORMALS: no acute distress and healthy appearing GENERAL APPEARANCE: cooperative, comfortable and well developed HENMT: COMMON NORMALS: normocephalic, atraumatic, hearing grossly normal bilaterally, external ears normal, EAC's normal, TM's normal bilaterally, Normal external nose present and Normal nasal mucous membranes and turbinates present HEAD & SCALP: normal to inspection, normocephalic and atraumatic FACE & SINUS: normal facial exam and sinuses nontender NOSE: Normal external nose present, Normal nares present, No nasal polyps present and Normal nasal mucous membranes and turbinates present EXTERNAL EAR: Yes external ears normal EXTERNAL AUDITORY CANAL: EAC's normal TYMPANIC MEMBRANE: TM's normal bilaterally MOUTH: Normal oral and palatal mucosa present THROAT: posterior oropharynx normal and tonsils normal Eye: COMMON NORMALS: EOMs intact bilaterally, conjunctivae normal and normal visual ch by confrontation GENERAL EYE: appearance normal, both eyes and all related structures CONJUNCTIVA: Yes conjunctivae normal Neck/C-Spine: COMMON NORMALS: full ROM, no lymphadenopathy, supple and no meningeal signs GENERAL: Yes normal visual inspection Chest: COMMONS NORMALS: normal inspection of the chest Resp: COMMON NORMALS: normal respiratory effort, No retractions and No use of accessory muscles EFFORT & INSPECTION: Yes able to speak in complete sentences and Yes Actively coughing moist and hacking AUSCULTATION: wheezes expiratory wheezes, inspiratory wheezes and throughout Cardio: COMMON NORMALS: regular rate, regular rhythm, S1 normal heart sound present and S2 normal heart sound present RATE: regular rate RHYTHM: regular rhythm HEART SOUNDS: S1 normal heart sound present, S2 normal heart sound present, no gallops, no murmurs and no rubs Extremity: COMMON NORMALS: normal to inspection, full ROM and capillary refill normal Neuro: MENINGEAL SIGNS: Yes no meningeal signs Skin: COMMON NORMALS: no rashes or lesions noted GENERAL SKIN EXAM: no rashes or lesions noted Course Vital Signs: Vital signs: Vital Signs Temperature 98.4 F 08/26/24 20:05 Pulse Rate 92 08/26/24 21:23 Respiratory Rate 18 08/26/24 21:23 Blood Pressure 164/94 08/26/24 20:05 Pulse Oximetry 97 08/26/24 21:23 Oxygen Delivery Me thod Room Air 08/26/24 21:23 MDM - URI/Sore Throat Medical Decision Making Patient has had about a week of worsening cough, that is now productive. Has been short of breath with fevers as well. Did test positive for COVID here, however due to the now productive cough and worsening of symptoms will cover for potential bacterial etiology or atypical respiratory infection with azithromycin and treat with steroids. Was given a DuoNeb here and states this helped a little. Also will treat his cough at his request, with Kilo Lemos. Strict contact precautions were discussed and other conservative therapies, he is instructed to return if his condition worsens. Patient agrees with discharge plan at this time. His vitals have been stable throughout ED course including normal O2 saturation on room air. Lab Data Laboratory Results Coronavirus (PCR) Positive (Negative) A 08/26/24 20:38 Influenza A (PCR) Negative (Negative) 08/26/24 20:38 Influenza Type B (PCR) Negative (Negative) 08/26/24 20:38 RSV (PCR) Negative (Negative) 08/26/24 20:38 XR interpretation done by ED provider, pending radiology final review ED provider radiology interpretation(s): No pneumonia or major acute cardiopulmonary process on chest x-ray. Discharge Plan Discharge Patient Disposition: Home Clinical Impression: COVID-19 Condition: Stable Prescriptions: New azithromycin 500 mg tablet 500 mg PO DAILY 5 Days Qty: 5 0RF prednisone 20 mg tablet 60 mg PO ONCE 5 Days Qty: 15 0RF benzonatate 200 mg capsule 200 mg PO BID PRN (Reason: cough) Qty: 20 0RF No Action propranolol 20 mg tablet 20 mg PO Q6H Qty: 30 0RF propranolol 20 mg tablet 20 mg PO Q6H Qty: 30 0RF Imitrex 100 mg tablet See Rx Instructions .ROUTE .COMPLEX Qty: 10 0RF Rx Instructions: take 1 tab at onset of headache; if no relief, may repeat 1 tab after at least 2 hrs; max = 2 tabs/24 hrs Celebrex 100 mg capsule 100 mg PO BID PRN (Reason: pain) Qty: 20 0RF Discharge Orders: Discharge ED (Routine); Ordered 08/26/24 Ordered By: Mac Larose Patient Instructions: COVID-19 (Coronavirus Disease 2019) (ED) Activity Restrictions/Additional Instructions: Take medications as prescribed. Return with any new or worsening. See attached patient instructions for further education. Follow-up with your primary care provider. Coding Level of Care Code ED [employer] Former Supervisor for [employer]
[2024-08-26] MEDS: ipratropium-albuterol 3 mL Neb INHALATION (21:20)
[2024-08-26 21:23] VITALS: PULSE 92; RESP 18; O2SAT 97
[2024-08-26 21:26] LABS: Influenza A NEGATIVE (Negative); Influenza B NEGATIVE (Negative); Respiratory Syncytial Virus Ce NEGATIVE (Negative)
[2024-08-26 21:37] LABS: Covid PCR Positive (Negative)
[2024-08-26] MEDS: azithromycin 250 mg Tablet 500 MG PO (21:38)
[2024-08-26] MEDS: benzonatate 100 mg Capsule 200 MG PO (21:38)
[2024-08-26 22:07] VITALS: BP 152/97; PULSE 93; RESP 16; O2SAT 97
== END 2024-08-26 22:01 | disposition home or self-care (01) ==
PROVIDERS: Emergency Provider Physician Assistant
DX: U07.1 COVID-19 (principal); Z11.52 Encounter for screening for COVID-19; Z72.0 Tobacco use
CPT/HCPCS: 0241U; 71045; 94640; 99284; Q0144

== ENCOUNTER 2025-03-08 12:19 | Emergency (ER) | payer BC, MEDICAID, SELFPAY ==
--- NOTE | 2025-03-08 12:21 | ECG_ITS ---
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 Measurements Intervals [place] Rate: 106 P: 58 [place]: 125 QRS: 49 QRSD: 95 T: 38 QT: 311 QTc: 413 Interpretive Statements SINUS TACHYCARDIA INDETERMINATE AXIS INCOMPLETE RIGHT BUNDLE BRANCH BLOCK [90+ ms QRS DURATION, TERMINAL R IN V1/V2, 40+ ms S IN I/aVL/V4/V5/V6] No previous ECG available for comparison Electronically Signed On 03-09-2025 08:54:44 CDT by Moisés Collado M.D. [id number]
[2025-03-08 12:23] VITALS: BP 144/83; PULSE 109; RESP 18; TEMP 36.8; O2SAT 95; BMI 32.5
--- NOTE | 2025-03-08 12:39 | ED_ITS ---
HPI - Syncope 2 General: Chief Complaint: Syncope Stated Complaint: passing out, dizzy, confusion, n/v Time Seen by Provider: 03/08/25 12:31 History of Present Illness: 35-year-old man who presents emergency r oom with multiple episodes of syncope and fatigue. He says he has been passing out for the last 3 days. 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 He says he has been drinking lots of water. No chest pain. No abdominal pain. No vomiting. Related Data Home Medications ?Medication ?Instructions ?Recorded ?Confirmed No Known Home Medications 03/08/25 07/0 11/01 Allergies Allergy/AdvReac Type Severity Reaction Status Date / Time No Known Allergies Allergy Verified 08/26/24 20:17 Review of Systems 2 Narrative: Constitutional symptoms: Negative except as documented in HPI. Skin symptoms: Negative except as documented in HPI. Eye symptoms: Negative except as documented in HPI. ENMT symptoms: Negative except as documented in HPI. Respiratory symptoms: Negative except as documented in HPI. Cardiovascular symptoms: Negative except as documented in HPI. Gastrointestinal symptoms: Negative except as documented in HPI. Genitourinary symptoms: Negative except as documented in HPI. Musculoskeletal symptoms: Negative except as documented in HPI. Neurologic symptoms: Negative except as documented in HPI. Psychiatric symptoms: Negative except as documented in HPI. Endocrine symptoms: Negative except as documented in HPI. PFSH ED 2 PFSH: Medical History No pertinent family history Surgical History No pertinent past surgical history Social History Smoking and tobacco/nicotine status: current every day tobacco/nicotine user Alcohol intake: never Physical Exam 2 Narrative: EXAM NARRATIVE: General: Alert, no acute distress. Skin: Warm, dry. Head: Normocephalic, atraumatic. Neck: Supple, trachea midline. Eye: Extraocular movements are intact. Ears, nose, mouth and throat: Dry oral mucosa Cardiovascular: Regular, tachycardic, normal peripheral perfusion. Respiratory: Lungs are clear to auscultation, respirations are non-labored, breath sounds are equal, Symmetrical chest wall expansion. Gastrointestinal: Soft, Nontender, Non distended Musculoskeletal: Normal ROM, no deformity. Neurological: Alert and oriented, No focal neurological deficit observed. Psychiatric: Cooperative, appropriate mood & affect. Course 2 Vital Signs: Vital signs: Vital Signs Temperature 98.2 F 03/08/25 12:23 Pulse Rate 109 H 03/08/25 12:23 Respiratory Rate 18 03/08/25 12:23 Blood Pressure 144/83 03/08/25 12:23 Pulse Oximetry 95 03/08/25 12:23 Oxygen Delivery Me thod Room Air 03/08/25 12:23 MDM - Syncope Medical Decision Making Medical decision making: Differential diagnosis including but not limited to and based on the above HPI, review of systems and physical exam in this patient with syncope: Vasovagal, orthostatics hypotension, cardiac dysrhythmia, myocardial infarction, infection and hypotension, Orders placed to evaluate differential diagnosis based on the above differential, HPI and physical exam EKG: Time 1419. Rate 101. Sinus tachycardia, No ST-T changes, no ectopy, normal TN & QRS intervals, This was reviewed and interpreted by myself the ER physician at 1425. Lab Review: Laboratory results were reviewed and interpreted by myself the emergency room physician. No leukocytosis. No anemia. Slight elevation in his creatinine at 1.3 which is be high for this patient and would indicate dehydration. CTA chest with PE protocol: Patient still had some slight tachycardia prior to discharge so CTA done to rule out PE given that he is tachycardic and had syncope. This is negative for PE or other acute process. This was reviewed and interpreted by myself the emergency room physician. I also reviewed the radiology report. I reviewed the patient's medical record. Reexamination: Patient remained stable. No increased work of breathing. No altered mental status. No focal motor deficits. Discussed using drinks with salted sugar for rehydration such as Gatorade or LMNT Assessment and plan: Syncope Dehydration Acute renal insufficiency ? 2 L normal saline bolus in the emergency room. - Discharged home - Discussed plan with patient. Answered any questions. - Evaluation and treatment of this problem were appropriate in the emergency setting. Lab Data 03/08/25 12:50 03/08/25 12:50 Radiology Impressions Chest CTA 03/08/25 13:44 IMPRESSION: 1. No evidence of pulmonary embolus 2. Lungs are well aerated. No focal pneumonia or pleural fluid. Laboratory Results WBC 4.54 10^3/uL (3.29-11.43) 03/08/25 12:50 RBC 5.37 10^6/uL (3.85-5.65) 03/08/25 12:50 Hgb 15.90 g/dL (11.27-16.99) 03/08/25 12:50 Hct 47.0 % (37-53) 03/08/25 12:50 MCV 87.5 fl (82-101) 03/08/25 12:50 MCH 29.6 pg (27-33) 03/08/25 12:50 MCHC 33.8 g/dL (30-55) 03/08/25 12:50 RDW 12.9 % (12.1-15.1) 03/08/25 12:50 Plt Count 118 10^3/cmm (157-399) L 03/08/25 12:50 MPV 10.1 fL (7.4-10.4) 03/08/25 12:50 Neut % (Auto) 74.9 % 03/08/25 12:50 Lymph % (Auto) 16.1 % 03/08/25 12:50 [place] % (Auto) 7.5 % 03/08/25 12:50 Eos % (Auto) 0.2 % 03/08/25 12:50 Baso % (Auto) 0.4 % 03/08/25 12:50 Neut # (Auto) 3.40 10^3/uL (1.8-7.7) 03/08/25 12:50 Lymph # (Auto) 0.7 10^3/uL (0.8-4.8) L 03/08/25 12:50 [place] # (Auto) 0.3 10^3/uL (0.2-0.9) 03/08/25 12:50 Eos # (Auto) 0.0 10^3/uL (0.0-0.8) 03/08/25 12:50 Baso # (Auto) 0.0 10^3/uL (0.0-0.1) 03/08/25 12:50 Nucleated RBC % (auto) 0 % 03/08/25 12:50 Nucleated RBCs # 0.0 /100WBC 03/08/25 12:50 Sodium 135 mmol/L (136-145) L 03/08/25 12:50 Potassium 3.8 mmol/L (3.5-5.1) 03/08/25 12:50 Chloride 99 mmol/L (98-107) 03/08/25 12:50 Carbon Dioxide 24 mmol/L (22-29) 03/08/25 12:50 Anion Gap 15.8 (5-19) 03/08/25 12:50 BUN 8 mg/dL (6-20) 03/08/25 12:50 Creatinine 1.3 mg/dL (0.7-1.2) H 03/08/25 12:50 GFR Calculation 62.5 mL/min (90-130) L 03/08/25 12:50 Glucose 99 mg/dL (65-115) 03/08/25 12:50 Calculated Osmolality 278 mOsm/kg (285-295) L 03/08/25 12:50 Lactic Acid 0.8 mmol/L (0.5-2.2) 03/08/25 12:50 Calcium 8.8 mg/dL (8.5-10.5) 03/08/25 12:50 Total Bilirubin 0.7 mg/dL (0.15-1.2) 03/08/25 12:50 AST 20 U/L (0-40) 03/08/25 12:50 ALT 18 U/L (0-41) 03/08/25 12:50 Alkaline Phosphatase 90 U/L (40-130) 03/08/25 12:50 Troponin T Baseline 17 ng/L (0-15) H 03/08/25 12:50 C-Reactive Protein 43.1 mg/L (0.0-4.9) H 03/08/25 12:50 Total Protein 7.2 g/dL (6.6-8.7) 03/08/25 12:50 Albumin 4.4 g/dL (3.5-5.2) 03/08/25 12:50 Globulin 2.8 g/dL (1.3-4.6) 03/08/25 12:50 Lipase 15 U/L (13-60) 03/08/25 12:50 All radiology interpretation(s) finalized by discharge Discharge Plan Discharge Patient Disposition: Home Clinical Impression: Syncope, Dehydration, Acute renal insufficiency Condition: Stable Prescriptions: No Action No Known Home Medications Discharge Orders: Discharge ED (Routine); Ordered 03/08/25 Ordered By: Veronica Hameed Discharge Activity: Increase activity as tolerated Patient Instructions: Dehydration (ED), Opioid Safety, Pain Management, Patient Portal & Nilsa Instructions Activity Restrictions/Additional Instructions: Thank you for choosing [facility] for your healthcare needs today. You have been screened and evaluated and felt safe for discharge. Health conditions do change or evolve sometimes and as such it is important that you follow up with your Primary Doctor to be re checked, 3-5 days is a general good time frame for follow up. 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
[2025-03-08 13:03] LABS: Hematocrit 47.0 % (37-53); Hemoglobin 15.90 g/dL (11.27-16.99); Mean Corpuscular HGB Conc 33.8 g/dL (30-55); Mean Corpuscular Hemoglobin 29.6 pg (27-33); Mean Corpuscular Volume 87.5 fl (82-101); Nucleated Red Blood Cells % 0 %; Platelet Count 118 10^3/cmm (157-399); Red Blood Count 5.37 10^6/uL (3.85-5.65); White Blood Count 4.54 10^3/uL (3.29-11.43)
[2025-03-08 13:22] LABS: Troponin(5th) Baseline 17 ng/L (0-15)
[2025-03-08 13:23] LABS: Alanine Aminotransferase 18 U/L (0-41); Albumin Level 4.4 g/dL (3.5-5.2); Alkaline Phosphatase 90 U/L (40-130); Anion Gap 15.8 (5-19); Aspartate Amino Transferase 20 U/L (0-40); Blood Urea Nitrogen 8 mg/dL (6-20); Calcium 8.8 mg/dL (8.5-10.5); Carbon Dioxide 24 mmol/L (22-29); Chloride 99 mmol/L (98-107); Creatinine Clr Calc Pharmacy 100.1164; Globulin 2.8 g/dL (1.3-4.6); Glucose 99 mg/dL (65-115); Lipase 15 U/L (13-60); Osmolality Calculated 278 mOsm/kg (285-295); Potassium 3.8 mmol/L (3.5-5.1); Sodium 135 mmol/L (136-145); Total Protein 7.2 g/dL (6.6-8.7)
[2025-03-08 13:25] LABS: Lactic Sepsis W/Reflex 0.8 mmol/L (0.5-2.2)
--- NOTE | 2025-03-08 13:44 | CT_ITS ---
WS: [id number] CTA OF THE CHEST WITH PULMONARY EMBOLISM PROTOCOL TECHNIQUE: High-resolution contrast enhanced CTA of the chest with coronal and sagittal reformatted images with pulmonary embolism protocol. MIP images are also reviewed. CLINICAL INFORMATION: syncope, tachycardia COMPARISON: None. DLP: 771.[address] scans at [facility] use at least one of these dose optimization techniques: automated exposure control; mA and/or kV adjustment per patient size (includes targeted exams where dose is matched to clinical indication); or iterative reconstruction. FINDINGS: Proximal main pulmonary arteries are normal. Normal segmental and subsegmental pulmonary arteries. No evidence of pulmonary embolus. Normal caliber thoracic aorta. No mediastinal or hilar lymphadenopathy. Lungs are well aerated. No acute pulmonary infiltrates. No focal pneumonia or pleural fluid. Adrenal glands are normal. Small esophageal hernia. CT/CT angio chest PE protcl [id number] IMPRESSION: 1. No evidence of pulmonary embolus 2. Lungs are well aerated. No focal pneumonia or pleural fluid.
[2025-03-08] MEDS: iohexol 350 mg/mL 500 mL Btl (per mL) IV (14:03)
[2025-03-08 14:30] VITALS: BP 143/90; PULSE 103; RESP 16; O2SAT 96
--- NOTE | 2025-03-08 14:31 | ECG_ITS ---
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 Measurements Intervals [place] Rate: 101 P: 55 [place]: 139 QRS: 68 QRSD: 100 T: 16 QT: 322 QTc: 419 Interpretive Statements SINUS TACHYCARDIA INCOMPLETE RIGHT BUNDLE BRANCH BLOCK [90+ ms QRS DURATION, TERMINAL R IN V1/V2, 40+ ms S IN I/aVL/V4/V5/V6] ABNORMAL RHYTHM ECG Compared to ECG 03/08/2025 12:29:03 Indeterminate axis no longer present Electronically Signed On 03-09-2025 09:30:33 CDT by Moisés Collado M.D. [id number]
[2025-03-08 15:00] VITALS: BP 146/91; PULSE 101; O2SAT 97
[2025-03-08 15:25] LABS: Troponin 5 2HR 26.28 ng/L (0-15); Troponin 5 2HR Delta 9.28 ABS# (0-10)
[2025-03-08 15:30] VITALS: BP 135/71; PULSE 93; O2SAT 95
[2025-03-08 16:00] VITALS: BP 123/75; PULSE 95; O2SAT 100
--- NOTE | 2025-03-08 16:32 | PC.NURSE ---
Addendum entered by Avis Luna RN 03/08/25 16:33: DR. WHEELER NOTIFIED. Original Note: PATIENT STOOD UP AFTER SIGNING DC PAPERWORK AND HAD VERTIGO. PATIENT STATED HE WANTED TO GO AHEAD AND GO HOME. I HAD PATIENT STAND FOR A MOMENT BEFORE WALKING AND STILL SEEMED TO HAVE VERTIGO AND UNBALANCED. I SUGGESTED PATIENT SIT BACK DOWN AND BE REASSESSED BY PROVIDER, PATIENT STATED HE WAS FINE AND REALLY WANTED TO JUST BE DC AND WOULD BE FINE . PATIENT ESCORTED TO SEATING AREA IN [facility] AND STATED HE FELT BETTER.
== END 2025-03-08 16:36 | disposition home or self-care (01) ==
PROVIDERS: Emergency Medicine; Emergency Provider Emergency Medicine
DX: R55 Syncope and collapse (principal); E86.0 Dehydration; N28.9 Disorder of kidney and ureter, unspecified; Z72.0 Tobacco use
CPT/HCPCS: 71275; 80053; 83605; 83690; 84484; 85025; 86140; 87040; 93005; 99285; J7030

== ENCOUNTER 2025-03-11 10:03 | Emergency (ER) | payer BC, MEDICAID, SELFPAY ==
[2025-03-11 10:16] VITALS: BP 126/85; PULSE 101; RESP 17; TEMP 37.7; O2SAT 95; BMI 32.5
--- NOTE | 2025-03-11 10:22 | ED_ITS ---
HPI - Headache 2 General: Chief Complaint: Headache Stated Complaint: dizzy,headache, bodyaches Time Seen by Provider: 03/11/25 10:07 History of Present Illness: 35-year-old male presents emergency room he was seen earlier this week with complaint of lightheadedness dizziness he been exposed to heat for prolonged period of time. He states since he was seen then he continues to be lightheaded and dizzy has a headache generally does not feel well he has a low-grade fever this today when he presents. He was outside in the heat yesterday for a brief period of time. Associated symptoms: Deny chest pain, fever(s) or rash Related Data Previous Rx's ?Medication ?Instructions ?Recorded promethazine 25 mg tablet 25 mg PO Q6H PRN nausea and 03/11/25 vomiting #20 tabs Allergies Allergy/AdvReac Type Severity Reaction Status Date / Time No Known Allergies Allergy Verified 08/26/24 20:17 Review of Systems 2 Const: Denies: fever(s) or chills Card: Denies: chest pain Resp: Denies: dyspnea GI: Denies: abdominal pain : Denies: dysuria, urinary frequency or urinary urgency Musc: Denies: neck pain or back pain Skin/Breast: Denies: rash PFSH ED 2 PFSH: Medical History No pertinent family history Surgical History No pertinent past surgical history Social History Smoking and tobacco/nicotine status: current every day tobacco/nicotine user Alcohol intake: never Physical Exam 2 Const: GENERAL APPEARANCE: cooperative ORIENTATION/CONSCIOUSNESS: Yes awake, Yes oriented to person, Yes oriented to place and Yes oriented to time HENMT: COMMON NORMALS: normocephalic, atraumatic and hearing grossly normal bilaterally HEAD & SCALP: normocephalic and atraumatic Resp: COMMON NORMALS: normal respiratory effort, No retractions, No use of accessory muscles and clear to auscultation bilaterally AUSCULTATION: clear to auscultation bilaterally Cardio: COMMON NORMALS: regular rate, regular rhythm and No murmurs present (Cardio) RATE: regular rate RHYTHM: regular rhythm GI: COMMON NORMALS: Soft to palpation and No hepatosplenomegaly present A USCULTATION: Yes normoactive bowel sounds PALPATION: Yes Soft to palpation, No Tenderness to palpation present (GI), No Guarding due to palpation present (GI) and Yes No hepatosplenomegaly present Extremity: COMMON NORMALS: normal to inspection, capillary refill normal, no clubbing, cyanosis or edema, no calf tenderness and no pedal edema Neuro: SENSORIUM/ORIENTATION: Yes oriented to person, Yes oriented to place and Yes oriented to time Skin: COMMON NORMALS: no rashes or lesions noted GENERAL SKIN EXAM: no rashes or lesions noted Course 2 Vital Signs: Vital signs: Vital Signs Temperature 99.9 F H 03/11/25 10:16 Pulse Rate 101 H 03/11/25 10:16 Respiratory Rate 17 03/11/25 10:16 Blood Pressure 126/85 03/11/25 10:16 Pulse Oximetry 95 03/11/25 10:16 Oxygen Delivery Me thod Room Air 03/11/25 10:16 MDM - Headache Medical Decision Making Significantly improved after fluid bolus. This is a little leukopenia. His anxiety can heat yesterday. BUN and creatinine are okay he does have some ketones in urine few blood cells but he has no dysuria urgency or frequency she has not had a leukocyte Estrace or nitrates in the urine. Discharge patient home advised him to avoid heat promethazine as needed for nausea or vomiting increase fluid intake if has any worsening or change symptoms return to the emergency room should follow-up on his urine as an outpatient if he continues Medical Records I reviewed the patient's medical records. Lab Data I reviewed the patient's lab results. 03/11/25 10:28 03/11/25 10:28 Radiology Impressions Chest X-Ray 03/11/25 10:35 IMPRESSION: No acute cardiopulmonary process. Laboratory Results WBC 3.21 10^3/uL (3.29-11.43) L 03/11/25 10:28 RBC 5.19 10^6/uL (3.85-5.65) 03/11/25 10:28 Hgb 15.30 g/dL (11.27-16.99) 03/11/25 10:28 Hct 44.8 % (37-53) 03/11/25 10:28 MCV 86.3 fl (82-101) 03/11/25 10:28 MCH 29.5 pg (27-33) 03/11/25 10:28 MCHC 34.2 g/dL (30-55) 03/11/25 10: RDW 12.6 % (12.1-15.1) 03/11/25 10:28 Plt Count 63 10^3/cmm (157-399) L 03/11/25 10:28 MPV 12.3 fL (7.4-10.4) H 03/11/25 10:28 Neut % (Auto) 51.5 % 03/11/25 10:28 Lymph % (Auto) 36.1 % 03/11/25 10:28 [place] % (Auto) 11.2 % 03/11/25 10:28 Eos % (Auto) 0.3 % 03/11/25 10:28 Baso % (Auto) 0.6 % 03/11/25 10:28 Neut # (Auto) 1.65 10^3/uL (1.8-7.7) L 03/11/25 10:28 Lymph # (Auto) 1.2 10^3/uL (0.8-4.8) 03/11/25 10:28 [place] # (Auto) 0.4 10^3/uL (0.2-0.9) 03/11/25 10:28 Eos # (Auto) 0.0 10^3/uL (0.0-0.8) 03/11/25 10:28 Baso # (Auto) 0.0 10^3/uL (0.0-0.1) 03/11/25 10: Nucleated RBC % (auto) 0 % 03/11/25 10: Nucleated RBCs # 0.0 /100WBC 03/11/25 10:28 Sodium 135 mmol/L (136-145) L 03/11/25 10:28 Potassium 3.6 mmol/L (3.5-5.1) 03/11/25 10: Chloride 100 mmol/L (98-107) 03/11/25 10: Carbon Dioxide 20 mmol/L (22-29) L 03/11/25 10:28 Anion Gap 18.6 (5-19) 03/11/25 10:28 BUN 9 mg/dL (6-20) 03/11/25 10: Creatinine 1.1 mg/dL (0.7-1.2) 03/11/25 10: GFR Calculation 75.7 mL/min (90-130) L 03/11/25 10: Glucose 128 mg/dL (65-115) H 03/11/25 10:28 Calculated Osmolality 280 mOsm/kg (285-295) L 03/11/25 10:28 Calcium 8.8 mg/dL (8.5-10.5) 03/11/25 10: Total Bilirubin 0.7 mg/dL (0.15-1.2) 03/11/25 10: AST 24 U/L (0-40) 03/11/25 10: ALT 26 U/L (0-41) 03/11/25 10: Alkaline Phosphatase 73 U/L (40-130) 03/11/25 10: Creatine Kinase 104 U/L (39-308) 03/11/25 10:28 Total Protein 7.5 g/dL (6.6-8.7) 03/11/25 10: Albumin 4.1 g/dL (3.5-5.2) 03/11/25 10: Globulin 3.4 g/dL (1.3-4.6) 03/11/25 10: Lipase 17 U/L (13-60) 03/11/25 10:28 Urine Color Dark yellow (Yellow) A 03/11/25 10:30 Urine Appearance Cloudy (CLEAR) A 03/11/25 10:30 Urine pH 6.0 (5-7) 03/11/25 10:30 Ur Specific [place] 1.029 (1.005-1.030) 03/11/25 10:30 Urine Protein 3+ (Negative) A 03/11/25 10:30 Urine Glucose (UA) Negative (Normal) 03/11/25 10:30 Urine Ketones 2+ (Negative) H 03/11/25 10:30 Urine Blood 2+ (Negative) A 03/11/25 10:30 Urine Nitrate Negative (Negative) 03/11/25 10:30 Urine Bilirubin 1+ (Negative) H 03/11/25 10:30 Urine Urobilinogen 1.0 mg/dL (Negative) 03/11/25 10:30 Ur Leukocyte Esterase Negative (Negative) 03/11/25 10:30 Urine RBC 11-20 /hpf (0-2) H 03/11/25 10:30 Urine WBC 0-5 /hpf (0-5) 03/11/25 10:30 Ur Squamous Epith Cells 0-5 /hpf (0-5) 03/11/25 10:30 Amorphous Sediment Not Reportable 03/11/25 10:30 Urine Bacteria None seen /hpf (NONE) 03/11/25 10:30 Hyaline Casts 12.38 /lpf 03/11/25 10:30 Urine Mucus 2+ /hpf 03/11/25 10:30 All radiology interpretation(s) finalized by discharge Discharge Plan Discharge Patient Disposition: Home Clinical Impression: Heat exhaustion, Headache Condition: Stable Prescriptions: New promethazine 25 mg tablet 25 mg PO Q6H PRN (Reason: nausea and vomiting) Qty: 20 0RF Discharge Orders: Discharge ED (Routine); Ordered 03/11/25 Ordered By: Jose Yan Discharge Diet: Usual diet Discharge Activity: Increase activity as tolerated Patient Instructions: Opioid Safety, Pain Management, Patient Portal & [place] Instructions Activity Restrictions/Additional Instructions: Thank you for choosing [facility] for your healthcare needs today. It is very important that you follow up as instructed or that you return to the Emergency Department should you have concerns or if your condition changes or worsens in any way. You were seen in the emergency room with complaints of generally not feeling well with nausea vomiting and headache. You reported your symptoms improve after IV fluids. Your laboratory test did not show any emergent conditions there was signs of mild dehydration. Recommend discharge home with promethazine to use as needed for nausea or vomiting start with clear liquid diet and advance your diet as you are able to tolerate. Print Language: Tajik Coding Level of Care Code ED [employer] for [employer]
--- NOTE | 2025-03-11 10:35 | XRR_ITS ---
PROCEDURE INFORMATION: Exam: XR Chest Exam date and time: 03/11/2025 10:46 AM Age: 35 years old Clinical indication: Cough and dyspnea; Additional info: Dyspnea/cough TECHNIQUE: Imaging protocol: Radiologic exam of the chest. Views: 1 view. COMPARISON: CT angio chest PE protcl [id number] 03/08/2025 1:57 PM FINDINGS: Lungs: Unremarkable. No consolidation. Pleural spaces: Unremarkable. No pleural effusion. No pneumothorax. Heart/Mediastinum: Unremarkable. No cardiomegaly. Bones/joints: Unremarkable. XR/XR chest 1V portable [id number] IMPRESSION: No acute cardiopulmonary process.
[2025-03-11 10:39] LABS: Hematocrit 44.8 % (37-53); Hemoglobin 15.30 g/dL (11.27-16.99); Mean Corpuscular HGB Conc 34.2 g/dL (30-55); Mean Corpuscular Hemoglobin 29.5 pg (27-33); Mean Corpuscular Volume 86.3 fl (82-101); Nucleated Red Blood Cells % 0 %; Platelet Count 63 10^3/cmm (157-399); Red Blood Count 5.19 10^6/uL (3.85-5.65); White Blood Count 3.21 10^3/uL (3.29-11.43)
[2025-03-11 10:40] LABS: Glucose Urine UA Negative (Normal); Nitrate Urine Negative (Negative); Specific Gravity, Urine 1.029 (1.005-1.030)
[2025-03-11 10:45] LABS: Add Urine Microscopic? YES
[2025-03-11 10:49] VITALS: BP 120/87; PULSE 94; O2SAT 92
[2025-03-11 10:56] LABS: Slide Review Slide Review Perform
[2025-03-11 11:06] LABS: Alanine Aminotransferase 26 U/L (0-41); Albumin Level 4.1 g/dL (3.5-5.2); Alkaline Phosphatase 73 U/L (40-130); Anion Gap 18.6 (5-19); Aspartate Amino Transferase 24 U/L (0-40); Blood Urea Nitrogen 9 mg/dL (6-20); Calcium 8.8 mg/dL (8.5-10.5); Carbon Dioxide 20 mmol/L (22-29); Chloride 100 mmol/L (98-107); Creatinine Clr Calc Pharmacy 118.3194; Globulin 3.4 g/dL (1.3-4.6); Glucose 128 mg/dL (65-115); Lipase 17 U/L (13-60); Osmolality Calculated 280 mOsm/kg (285-295); Potassium 3.6 mmol/L (3.5-5.1); Sodium 135 mmol/L (136-145); Total Protein 7.5 g/dL (6.6-8.7)
[2025-03-11 11:07] LABS: UA Slide Review UA Slide Review Perf
[2025-03-11 11:55] VITALS: BP 126/79; PULSE 93; O2SAT 96
== END 2025-03-11 11:55 | disposition home or self-care (01) ==
PROVIDERS: Emergency Provider Family Medicine
DX: R51.9 Headache, unspecified (principal); X30.XXXA Exposure to excessive natural heat, initial encounter
CPT/HCPCS: 36415; 71045; 80053; 81001; 82550; 83690; 85025; 87040; 96374; 99284; J0780; J7030